=== PATIENT | male | born 1995 | race Caucasian/White ===

== ENCOUNTER 2019-02-07 06:51 | Emergency (ER) | payer OTHER ==
[~2019-02-07] VITALS: Ht 175.3 cm; Wt 70.8 kg
[~2019-02-07 06:51] MED LIST: PROTONIX40 MG PO
== END 2019-02-07 09:58 | disposition home or self-care (01) ==
LOC: ER 06:51
DX: B34.9 Viral infection, unspecified (principal)

== ENCOUNTER 2020-02-10 14:28 | Emergency (ER) | payer OTHER ==
[~2020-02-10] VITALS: Ht 175.3 cm; Wt 65.8 kg
== END 2020-02-10 21:21 | disposition home or self-care (01) ==
LOC: ER 14:28
DX: M94.0 Chondrocostal junction syndrome [Tietze] (principal)